=== PATIENT | male | born 1950 | race Caucasian/White ===

== ENCOUNTER 2018-02-08 16:59 | Inpatient (IN) | payer MEDICAID ==
[~2018-02-08] VITALS: Ht 175.3 cm; Wt 74.8 kg
[2018-02-08] MEDS ORDERED: SODIUM CHLORIDE 0.9% 1,000 ML IV ONE (21:12)
[2018-02-08 23:33] LABS: BASOPHILS % 0.7 % (0.0-2.0); EOSINOPHILS % 0.8 % (0.0-5.0); HEMATOCRIT. 43.1 % (42.0-52.0); HEMOGLOBIN. 15.3 g/dL (14.0-18.0); LYMPHOCYTES % 48.9 % (20.0-50.0); MEAN CORPUSCULAR HEMOGLOBIN 31.8 pg (28.0-32.0); MEAN CORPUSCULAR VOLUME 89.9 fL (80.0-94.0); MEAN PLATELET VOLUME 8.3 fl (7.4-10.4); MONOCYTES % 8.6 % (2.0-8.0); PLATELET 146 x1000/uL (130-400); RED CELL DISTRIBUTION WIDTH 14.8 % (11.6-14.6)
[2018-02-08 23:39] LABS: CHLORIDE 105 mEq/L (98-107)
[2018-02-08 23:41] LABS: PARTIAL THROMBOPLASTIN TIME 25.3 sec (23.4-31.0); PROTHROMBIN TIME 10.5 sec (9.1-11.1)
[2018-02-09 02:49] LABS: CLARITY URINE CLEAR (CLEAR); COLOR URINE YELLOW (YELLOW); KETONES URINE 2+ (NEGATIVE); LEUKOCYTE ESTERASE URINE NEGATIVE (NEGATIVE); NITRITE URINE NEGATIVE (NEGATIVE); OCCULT BLOOD URINE NEGATIVE (NEGATIVE); PH URINE 5.5 (4.5-8.0); PROTEIN URINE NEGATIVE (NEGATIVE); UROBILINOGEN URINE 0.2 E.U./dL (0.2-1.0)
[2018-02-09 08:55] VITALS: BP 107/71
[2018-02-09] MEDS ORDERED: CLONIDINE 0.1MG TABLET PO PRN (09:00)
[2018-02-09] MEDS ORDERED: POTASSIUM CHLORIDE 20MEQ TABLET SR PO PRN (09:00)
[2018-02-09] MEDS ORDERED: ACETAMINOPHEN 325MG TABLET PO PRN (09:00)
[2018-02-09 12:00] VITALS: BP 134/69
[2018-02-09 12:16] VITALS: BP 130/72
[2018-02-09 16:00] VITALS: BP 126/68
[2018-02-09] MEDS ORDERED: MAGNESIUM HYDROXIDE 400MG/5ML 30ML UDC PO PRN (19:00)
[2018-02-09 20:46] VITALS: BP 126/74
[2018-02-10] VITALS: BP 131/72
[2018-02-10 04:00] VITALS: BP 120/70
[2018-02-10 08:00] VITALS: BP 126/71
[2018-02-10 13:50] VITALS: BP 122/59
== END 2018-02-10 16:11 | disposition home or self-care (01) | DRG 775 ==
LOC: ER 17:14 → 6WST 02-09 01:27 → ENRESERV 02-09 08:05
PROVIDERS: ADMIT Emergency Medicine; ATTEND Emergency Medicine
DX: F10.10 Alcohol abuse, uncomplicated (principal); G92 Toxic encephalopathy; F17.210 Nicotine dependence, cigarettes, uncomplicated; R26.9 Unspecified abnormalities of gait and mobility; I10 Essential (primary) hypertension; Z59.0 Homelessness
CPT/HCPCS: 36415; 71045; 83880; 84484; 93005; 96360; 96361; 97162; 99285; J7030

== ENCOUNTER 2018-06-01 12:32 | Emergency (ER) | payer MEDICAID, MEDICARE ==
[~2018-06-01] VITALS: Ht 170.2 cm; Wt 70.0 kg
[2018-06-01] MEDS ORDERED: ONDANSETRON HCL 4MG/2ML INJ IV STA (13:31)
[2018-06-01] MEDS ORDERED: SODIUM CHLORIDE 0.9% 1,000 ML IV ONE (13:31)
[2018-06-01 15:40] LABS: BASOPHILS % 1.5 % (0.0-2.0); EOSINOPHILS % 2.4 % (0.0-5.0); HEMATOCRIT. 46.5 % (42.0-52.0); LYMPHOCYTES % 59.2 % (20.0-50.0); MEAN CORPUSCULAR HEMOGLOBIN 31.9 pg (28.0-32.0); MEAN CORPUSCULAR VOLUME 92.5 fL (80.0-94.0); MONOCYTES % 7.1 % (2.0-8.0); NEUTROPHILS % 29.8 % (40.0-76.0); PLATELET 81 x1000/uL (130-400); RED BLOOD CELL COUNT 5.02 mill/uL (4.7-6.1)
[2018-06-01 15:43] LABS: CHLORIDE 100 mEq/L (98-107)
[2018-06-01 15:46] LABS: INR 1.1; PARTIAL THROMBOPLASTIN TIME 25.9 sec (23.4-31.0)
[2018-06-01 16:13] LABS: DIGOXIN < 0.1 ng/mL (0.9-2.0)
[2018-06-01 16:22] LABS: ETHANOL BLOOD 373 mg/dL
[2018-06-02] MEDS ORDERED: SODIUM CHLORIDE 0.9% 1,000 ML IV ONE (05:00)
[2018-06-02] MEDS ORDERED: LORAZEPAM 2MG/ML CPJ IV ONE ×2 (05:00→09:45)
[2018-06-02] MEDS ORDERED: FOLIC ACID 1 MG, THIAMINE HCL 100 MG, MVI, ADULT NO.1 10 ML in DEXTROSE 5% WATER 1,000 ML IV ONE ×4 (07:45)
[2018-06-02] MEDS ORDERED: DEXT 5%/0.45% NACL 1000ML 1,000 ML IV SCH (17:45)
[2018-06-02] MEDS ORDERED: LORAZEPAM 2MG/ML CPJ IV PRN (17:45)
[2018-06-02] MEDS ORDERED: CLONIDINE 0.1MG TABLET PO PRN (17:45)
[2018-06-02 18:02] LABS: HEPATITIS B SURFACE ANTIGEN NEGATIVE
[2018-06-02] MEDS ORDERED: CHLORDIAZEPOXIDE 25MG CAPSULE PO NR (18:03)
[2018-06-02 18:32] LABS: HEPATITIS A AB IGM NEGATIVE (NEGATIVE)
[2018-06-02 18:54] LABS: CLARITY URINE CLEAR (CLEAR); COLOR URINE DARK YELLOW (YELLOW); KETONES URINE TRACE (NEGATIVE); LEUKOCYTE ESTERASE URINE NEGATIVE (NEGATIVE); NITRITE URINE NEGATIVE (NEGATIVE); OCCULT BLOOD URINE TRACE (NEGATIVE); PROTEIN URINE NEGATIVE (NEGATIVE); SPECIFIC GRAVITY URINE 1.012 (1.005-1.030)
[2018-06-02 19:03] LABS: CANNABINOID URINE SCREEN NEGATIVE (NEGATIVE); PHENCYCLIDINE URINE SCREEN NEGATIVE (NEGATIVE)
[2018-06-02 19:04] LABS: *AMPHETAMINES SCREEN URINE NEGATIVE (NEGATIVE); *BARBITURATES SCREEN URINE NEGATIVE (NEGATIVE); *BENZODIAZEPINES SCREEN URINE NEGATIVE (NEGATIVE); *COCAINE SCREEN URINE NEGATIVE (NEGATIVE); METHADONE URINE SCREEN NEGATIVE (NEGATIVE); OPIATES URINE SCREEN NEGATIVE (NEGATIVE)
[2018-06-02 21:28] VITALS: BP 142/86
[2018-06-02] MEDS ORDERED: CHLORDIAZEPOXIDE 25MG CAPSULE PO SCH (22:00)
== END 2018-06-02 21:49 | disposition short-term general hospital (02) ==
LOC: ER 12:32 → CANBEDREQ 06-02 20:22 → ER 06-02 21:49
DX: F10.229 Alcohol dependence with intoxication, unspecified (principal); I10 Essential (primary) hypertension; J45.909 Unspecified asthma, uncomplicated; R74.0 Nonspecific elevation of levels of transaminase and lactic acid dehydrogenase [LDH]; E86.0 Dehydration; Y90.8 Blood alcohol level of 240 mg/100 ml or more; Z91.14 Patient's other noncompliance with medication regimen
CPT/HCPCS: 36415; 80053; 80162; 80305; 80320; 81003; 82140; 84484; 85025; 85610; 85730; 93005; 96365; 96366; 96375; 96376; 99285; J2060; J3411; J3490; J7030; J7070; 86705; 86709; 86803; 87340; 99284; G0480

== ENCOUNTER 2018-11-29 11:22 | Inpatient (IN) | payer MEDICARE ==
[~2018-11-29] VITALS: Ht 165.1 cm; Wt 72.6 kg
[2018-11-29 11:51] LABS: BASOPHILS % 0.9 % (0.0-2.0); EOSINOPHILS % 0.5 % (0.0-5.0); HEMATOCRIT. 48.3 % (42.0-52.0); HEMOGLOBIN. 16.8 g/dL (14.0-18.0); LYMPHOCYTES % 20.9 % (20.0-50.0); MEAN CORPUSCULAR HEMOGLOBIN 36.4 pg (28.0-32.0); MEAN CORPUSCULAR VOLUME 104.6 fL (80.0-94.0); MEAN PLATELET VOLUME 9.5 fl (7.4-10.4); MONOCYTES % 10.7 % (2.0-8.0); PLATELET 129 x1000/uL (130-400); RED BLOOD CELL COUNT 4.62 mill/uL (4.7-6.1); RED CELL DISTRIBUTION WIDTH 17.2 % (11.6-14.6)
[2018-11-29 11:57] LABS: CHLORIDE 88 mEq/L (98-107)
[2018-11-29 11:59] LABS: INR 1.2; PARTIAL THROMBOPLASTIN TIME 33.8 sec (23.4-31.0); PROTHROMBIN TIME 12.6 sec (9.6-11.0)
[2018-11-29 12:01] LABS: ETHANOL BLOOD 201 mg/dL
[2018-11-29] MEDS ORDERED: SODIUM CHLORIDE 0.9% 1,000 ML IV SCH (13:15)
[2018-11-29] MEDS ORDERED: PANTOPRAZOLE SODIUM 40 MG/VIAL IV SCH (13:15)
[2018-11-29] MEDS ORDERED: ONDANSETRON HCL 4MG/2ML INJ IV PRN (16:30)
[2018-11-29] MEDS ORDERED: CLONIDINE 0.1MG TABLET PO PRN (16:30)
[2018-11-29] MEDS ORDERED: DOCUSATE SODIUM 100MG CAPSULE PO PRN (16:30)
[2018-11-29] MEDS ORDERED: ACETAMINOPHEN 325MG TABLET PO PRN (16:30)
[2018-11-29] MEDS ORDERED: HYDROCODONE/ACETAMINOPHEN 5/325MG TABLET PO PRN (16:30)
[2018-11-29] MEDS ORDERED: LORAZEPAM 2MG/ML CPJ IV PRN (16:30)
[2018-11-29] MEDS ORDERED: GUAIFENESIN 200MG/10ML SUGAR FREE UDC PO PRN (16:30)
[2018-11-29] MEDS ORDERED: MAGNESIUM/ALUMINUM HYDROXIDE/SIMETHICONE 30ML UDC PO PRN (16:30)
[2018-11-29] MEDS ORDERED: LORAZEPAM 0.5MG TABLET PO PRN (16:30)
[2018-11-29] MEDS ORDERED: DIPHENHYDRAMINE 50MG/ML VIAL IV PRN (16:30)
[2018-11-29] MEDS ORDERED: NA PHOS,M-B/NA PHOS,DI-BA ENEMA 118ML PR PRN (16:30)
[2018-11-29] MEDS ORDERED: IPRATROPIUM/ALBUTEROL 0.5-3(2.5)MG/3ML NEB NEB PRN (16:30)
[2018-11-29] MEDS ORDERED: ACETAMINOPHEN 650MG SUPP PR PRN (16:30)
[2018-11-29] MEDS ORDERED: LEVOFLOXACIN 500MG PREMIX 100 ML IV NR (17:45)
[2018-11-29] MEDS ORDERED: METRONIDAZOLE 500 MG PREMIX 100 ML IV NR (17:45)
[2018-11-29 18:12] LABS: HEPATITIS B SURFACE ANTIGEN NEGATIVE
[2018-11-29 18:42] LABS: HEPATITIS A AB IGM NEGATIVE (NEGATIVE)
[2018-11-29] MEDS: DEXT 5%/0.9% NACL 1,000 ML IV SCH (20:15)
[2018-11-29] MEDS: MVI, ADULT NO.1 10 ML, FOLIC ACID 1 MG, THIAMINE HCL 100 MG in DEXT 5%/0.9% NACL 1,000 ML IV SCH ×4 (20:33)
[2018-11-30] VITALS (10 sets, daily range): BP systolic 101–130; BP diastolic 47–82
[2018-11-30 01:30] LABS: CREATINE KINASE MB FRACTION 4.4 ng/mL (0.5-3.6)
[2018-11-30] MEDS: METRONIDAZOLE 500 MG PREMIX 100 ML IV SCH ×3 (02:24→17:45)
[2018-11-30] MEDS ORDERED: CHLORDIAZEPOXIDE 5 MG CAPSULE PO SCH (06:00)
[2018-11-30 06:50] LABS: CHLORIDE 92 mEq/L (98-107)
[2018-11-30] MEDS: DEXT 5%/0.9% NACL 1,000 ML IV SCH (06:59)
[2018-11-30 07:09] LABS: HEMATOCRIT. 41.5 % (42.0-52.0); HEMOGLOBIN. 14.4 g/dL (14.0-18.0); MEAN CORPUSCULAR HEMOGLOBIN 35.8 pg (28.0-32.0); MEAN CORPUSCULAR VOLUME 103.6 fL (80.0-94.0); MEAN PLATELET VOLUME 9.7 fl (7.4-10.4); PLATELET 125 x1000/uL (130-400); RED BLOOD CELL COUNT 4.01 mill/uL (4.7-6.1); RED CELL DISTRIBUTION WIDTH 16.8 % (11.6-14.6)
[2018-11-30 07:18] LABS: LDL CHOLESTEROL 190 mg/dL (5-100)
[2018-11-30 07:19] LABS: CREATINE KINASE 187 IU/L (39-308); HDL CHOLESTEROL 13 mg/dL (40-59)
[2018-11-30 07:20] LABS: T4 FREE 1.54 ng/dL (0.76-1.46)
[2018-11-30 07:23] LABS: CREATINE KINASE MB FRACTION 6.6 ng/mL (0.5-3.6)
[2018-11-30] MEDS: NICOTINE 14MG PATCH TD SCH (09:26)
[2018-11-30] MEDS: PANTOPRAZOLE SODIUM 40 MG/VIAL IV SCH (09:26)
[2018-11-30] MEDS ORDERED: LORAZEPAM 2MG/ML CPJ IV NR (12:13)
[2018-11-30] MEDS ORDERED: POTASSIUM CHLORIDE INJ 40 MEQ in DEXT 5% WATER 250 ML IV NR (13:00)
[2018-11-30 13:29] LABS: PLATELET ESTIMATE SLIGHTLY DECREASED
[2018-11-30] MEDS ORDERED: LEVOFLOXACIN 500MG PREMIX 100 ML IV SCH (14:00)
[2018-11-30] MEDS ORDERED: LIDOCAINE HCL 1% 20ML VIAL (Pyxis) INJ ONE (14:01)
[2018-11-30] MEDS ORDERED: SODIUM BICARBONATE 4% (2.4MEQ) 5ML VIAL IV ONE (14:01)
[2018-11-30] MEDS: LACTULOSE 20G/30ML UDC PO SCH ×2 (14:49→21:23)
[2018-11-30] MEDS: CHLORDIAZEPOXIDE 25MG CAPSULE PO SCH ×2 (14:49→21:24)
[2018-11-30] MEDS: LEVOFLOXACIN 250MG PREMIX 50 ML IV SCH (19:06)
[2018-11-30] MEDS: MVI, ADULT NO.1 10 ML, FOLIC ACID 1 MG, THIAMINE HCL 100 MG in DEXT 5%/0.9% NACL 1,000 ML IV SCH ×4 (21:22)
[2018-12-01] VITALS (8 sets, daily range): BP systolic 84–124; BP diastolic 48–68
[2018-12-01] MEDS: DEXT 5%/0.9% NACL 1,000 ML IV SCH (02:15)
[2018-12-01] MEDS: METRONIDAZOLE 500 MG PREMIX 100 ML IV SCH ×2 (02:18→09:50)
[2018-12-01] MEDS: LACTULOSE 20G/30ML UDC PO SCH ×2 (06:19→14:16)
[2018-12-01] MEDS: CHLORDIAZEPOXIDE 25MG CAPSULE PO SCH ×3 (06:19→23:40)
[2018-12-01 07:01] LABS: INR 1.4; PARTIAL THROMBOPLASTIN TIME 37.8 sec (23.4-31.0); PROTHROMBIN TIME 14.2 sec (9.6-11.0)
[2018-12-01 07:12] LABS: CHLORIDE 102 mEq/L (98-107); HEMATOCRIT. 39.7 % (42.0-52.0); HEMOGLOBIN. 14.1 g/dL (14.0-18.0); MEAN CORPUSCULAR HEMOGLOBIN 36.6 pg (28.0-32.0); MEAN CORPUSCULAR VOLUME 102.7 fL (80.0-94.0); MEAN PLATELET VOLUME 9.4 fl (7.4-10.4); RED BLOOD CELL COUNT 3.87 mill/uL (4.7-6.1); RED CELL DISTRIBUTION WIDTH 17.1 % (11.6-14.6)
[2018-12-01] MEDS: PANTOPRAZOLE SODIUM 40 MG/VIAL IV SCH (08:13)
[2018-12-01] MEDS: NICOTINE 14MG PATCH TD SCH (08:14)
[2018-12-01 11:22] LABS: PLATELET ESTIMATE DECREASED
[2018-12-01 11:23] LABS: PLATELET 97 x1000/uL (130-400)
[2018-12-01] MEDS ORDERED: POTASSIUM CHLORIDE INJ 40 MEQ in DEXT 5% WATER 250 ML IV SCH (14:00)
[2018-12-01] MEDS: LEVOFLOXACIN 250MG PREMIX 50 ML IV SCH (18:14)
[2018-12-01] MEDS ORDERED: MVI, ADULT NO.1 10 ML, FOLIC ACID 1 MG, THIAMINE HCL 100 MG in DEXT 5%/0.9% NACL 1,000 ML IV SCH ×4 (23:00)
[2018-12-02] VITALS (7 sets, daily range): BP systolic 93–148; BP diastolic 47–85
[2018-12-02] MEDS: METRONIDAZOLE 500 MG PREMIX 100 ML IV SCH ×3 (01:57→17:55)
[2018-12-02 05:51] LABS: INR 1.6; PROTHROMBIN TIME 16.6 sec (9.6-11.0)
[2018-12-02] MEDS: CHLORDIAZEPOXIDE 25MG CAPSULE PO SCH ×2 (06:00→14:30)
[2018-12-02 06:11] LABS: CHLORIDE 104 mEq/L (98-107)
[2018-12-02 06:15] LABS: HEMATOCRIT. 42.5 % (42.0-52.0); HEMOGLOBIN. 14.8 g/dL (14.0-18.0); MEAN CORPUSCULAR HEMOGLOBIN 36.1 pg (28.0-32.0); MEAN CORPUSCULAR VOLUME 103.8 fL (80.0-94.0); MEAN PLATELET VOLUME 10.2 fl (7.4-10.4); PLATELET 106 x1000/uL (130-400)
[2018-12-02] MEDS ORDERED: LACTULOSE 20G/30ML UDC PO SCH (09:00)
[2018-12-02] MEDS: NICOTINE 14MG PATCH TD SCH (09:16)
[2018-12-02] MEDS: PANTOPRAZOLE SODIUM 40 MG/VIAL IV SCH (09:31)
[2018-12-02 10:45] LABS: PLATELET ESTIMATE DECREASED
[2018-12-02] MEDS ORDERED: SODIUM BICARBONATE 4% (2.4MEQ) 5ML VIAL IV ONE ×2 (11:52→12:33)
[2018-12-02] MEDS ORDERED: LIDOCAINE HCL 1% 20ML VIAL (Pyxis) INJ ONE ×2 (11:53→12:34)
[2018-12-02] MEDS: LEVOFLOXACIN 250MG PREMIX 50 ML IV SCH (17:55)
[2018-12-02] MEDS ORDERED: POTASSIUM CHLORIDE 20MEQ TABLET SR PO NR (18:15)
== END 2018-12-02 22:50 | DRG 282 ==
LOC: ER 11:22 → 5EST 13:12 → EDBEDREQTM 13:16 → SUPCPDRO 16:13 → ENRESERV 19:40
PROVIDERS: ADMIT Internal Medicine; ATTEND Internal Medicine
PROC: 0W9G3ZZ Drainage of Peritoneal Cavity, Percutaneous Approach (ICD-10-PCS; principal; 2018-11-30)
PROC: 0W9G3ZZ Drainage of Peritoneal Cavity, Percutaneous Approach (ICD-10-PCS; 2018-12-02)
DX: K85.90 Acute pancreatitis without necrosis or infection, unspecified (principal); K76.7 Hepatorenal syndrome; I50.33 Acute on chronic diastolic (congestive) heart failure; E72.20 Disorder of urea cycle metabolism, unspecified; D69.6 Thrombocytopenia, unspecified; K80.70 Calculus of gallbladder and bile duct without cholecystitis without obstruction; E86.0 Dehydration; K70.31 Alcoholic cirrhosis of liver with ascites; K86.1 Other chronic pancreatitis; K72.90 Hepatic failure, unspecified without coma; J45.909 Unspecified asthma, uncomplicated; I11.0 Hypertensive heart disease with heart failure; F17.210 Nicotine dependence, cigarettes, uncomplicated; J98.11 Atelectasis; F10.129 Alcohol abuse with intoxication, unspecified; E78.5 Hyperlipidemia, unspecified; E87.6 Hypokalemia; Y90.7 Blood alcohol level of 200-239 mg/100 ml; Z91.19 Patient's noncompliance with other medical treatment and regimen; Z71.6 Tobacco abuse counseling; Z71.41 Alcohol abuse counseling and surveillance of alcoholic
CPT/HCPCS: 36415; 49083; 71045; 74181; 76700; 80061; 80076; 80320; 82040; 82140; 82248; 82550; 82553; 83615; 83735; 83880; 84439; 84443; 84484; 86705; 86709; 86803; 86850; 86900; 87340; 93005; 93306; 93970; 97110; 97162; 97530; 99291; C9113; J1956; J2060; J3411; J3480; J3490; J7042; J7060; A4315; G0480